=== PATIENT | male | born 1975 | race Caucasian/White ===

== ENCOUNTER 2020-08-29 20:06 | Emergency (ER) | payer MEDICAID ==
[~2020-08-29] VITALS: Ht 180.3 cm; Wt 79.4 kg
[~2020-08-29 20:06] MED LIST: CITA-36 PO
[2020-08-29 22:52] VITALS: BP 142/83
[2020-08-30] MEDS ORDERED: HYDROcodone-ACET 10/325MG TAB PO ONE
[2020-08-30] MEDS ORDERED: ONDANSETRON ODT 4 MG TAB PO ONE (00:15)
[2020-08-30] MEDS ORDERED: ONDANSETRON HCL 4 MG/2 ML VIAL IM ONE (00:15)
== END 2020-08-30 00:53 | disposition home or self-care (01) ==
LOC: ER 20:07
DX: T63.481A Toxic effect of venom of other arthropod, accidental (unintentional), initial encounter (principal); Y92.89 Other specified places as the place of occurrence of the external cause
CPT/HCPCS: J2405